=== PATIENT | female | born 1945 | race Caucasian/White ===

== ENCOUNTER 2021-08-21 09:00 | Outpatient (RCR) | payer MEDICARE, SELFPAY | END 2021-08-21 09:43 | disposition home or self-care (01) | LOC: HO.OT 09:00 | PROVIDERS: PCP Internal Medicine; Visit Provider Physician Assistant Surgical | DX: D17.22 Benign lipomatous neoplasm of skin and subcutaneous tissue of left arm (principal); R22.32 Localized swelling, mass and lump, left upper limb | CPT/HCPCS: 97110; 97112; 97140; 97165 ==